=== PATIENT | male | born 1945 | race African-American/Black ===

== ENCOUNTER 2016-12-19 22:41 | Emergency (ER) | payer OTHER ==
[~2016-12-19] VITALS: Ht 180.3 cm; Wt 103.3 kg
[2016-12-20 00:37] VITALS: BP 142/86
== END 2016-12-20 00:38 | disposition home or self-care (01) ==
LOC: EXP 22:41 → EME 22:41 → EXP 12-20 00:38
DX: S01.01XA Laceration without foreign body of scalp, initial encounter (principal); I25.2 Old myocardial infarction; Z79.01 Long term (current) use of anticoagulants; Z23 Encounter for immunization; W10.9XXA Fall (on) (from) unspecified stairs and steps, initial encounter
CPT/HCPCS: 70450; 72125; 99281; 99284